=== PATIENT | male | born 1930 | race Caucasian/White ===

== ENCOUNTER → 2017-12-16 12:54 | Outpatient (CLI) | payer MEDICARE | END | disposition home or self-care (01) | LOC: D.US 12:54 | DX: G45.9 Transient cerebral ischemic attack, unspecified (principal) ==

== ENCOUNTER → 2018-01-15 15:29 | Outpatient (CLI) | payer MEDICARE | END | disposition home or self-care (01) | LOC: D.RAD 15:29 | DX: M25.532 Pain in left wrist (principal) ==

== ENCOUNTER 2018-04-04 08:08 | Day surgery (SDC) | payer MEDICARE ==
[2018-04-03 09:32] LABS: BASOPHILS 0.6 % (0-2); EOSINOPHILS 5.2 % (0-7); HEMATOCRIT 49.5 % (42.0-54.0); HEMOGLOBIN 16.7 g/dL (13.5-17.5); IMMATURE GRANULOCYTES 0.2 % (0-5); LYMPHOCYTES 18.6 % (15-50); MCH 32.7 pg (26.0-34.0); MCHC 33.7 g/dL (31.0-37.0); MCV 96.9 fL (80.0-100.0); MEAN PLATELET VOLUME 10.7 fL (7.4-10.4); MONOCYTES 7.9 % (2-11); NEUTROPHILS 67.5 % (40-80); PLATELET COUNT 163 10x3/uL (130-400); RBC 5.11 10x6/uL (4.20-6.10); WBC 8.2 10x3/uL (4.8-10.8)
[2018-04-03 09:55] LABS: CALC OSMOLALITY 286 mosm/kg (275-300); CALCIUM 8.9 mg/dL (8.5-10.1); CARBON DIOXIDE 31.1 mmol/L (21.0-32.0); CHLORIDE - SERUM 104 mmol/L (98-107); CREATININE - SERUM 0.8 mg/dL (0.6-1.3); GLUCOSE 97 mg/dL (74-106); POTASSIUM - SERUM 4.1 mmol/L (3.5-5.1); SODIUM 144 mmol/L (136-145); UREA NITROGEN 12 mg/dL (7-18); eGFR NON AFRICAN AMERICAN > 90 mL/min (90-120)
[~2018-04-04] VITALS: Ht 185.4 cm; Wt 95.3 kg
--- NOTE | ~2018-04-04 | OP ---
PATIENT NAME: NATY MAHER MEDICAL RECORD: [id number] :31 LOCATION:PITER ADMISSION DATE: SURGEON: HUMAIRA CONROY DO DATE OF OPERATION: 04/04/2018 PROCEDURE PERFORMED: Left endoscopic carpal tunnel release. PREOPERATIVE DIAGNOSIS: Left carpal tunnel syndrome. POSTOPERATIVE DIAGNOSIS: Left carpal tunnel syndrome. INDICATIONS: Mr. Maher is an 87-year-old male, who presented to my office with continued hand pain and numbness in the first 3 fingers. He said he was tired of dealing with the pain. He even had some thenar atrophy noted. He said it had been going on for years. Once I saw him, he had a positive carpal compression and Tinel's and Phalen's sign at the wrist on the median nerve. Due to this and after suggesting that he have a nerve conduction study done to give us an idea of the likelihood of recovery, but would not change whether he had the pain or not, the reason I would do the carpal tunnel release just for the pain, he was okay with skipping, in fact he emphatically asked that I would not order the nerve conduction study, but that would do the surgery due to the fact that he wanted it done as soon as possible. I informed him of the risks and benefits and the expectations that this may resolve his pain, but the numbness may not go away in those first 3 fingers and the half of the ring finger, the radial half. He was okay with that and understands that he could also have further damage and nerve and tingling. He was okay with that as well and wanted to proceed forward with the procedure. The patient consented for a left endoscopic carpal tunnel. DESCRIPTION OF PROCEDURE: The patient was taken to the operative suite, laid in supine position, given 2 grams Ancef preoperatively. Timeout was performed. Everyone was in agreeance with the correct side, site and the patient. The left upper extremity was then prepped and draped with a tourniquet above the elbow, below the drapes. Once time out was performed and procedure began, approximately a cm long incision was made just proximal to the wrist crease. Then, the left upper extremity was exsanguinated with Esmarch and tourniquet was inflated to 250 mmHg, was up for 10 minutes. Once the tourniquet was inflated, the incision began on the skin with 15 blade just through the skin and then Ragnells were used to dissect bluntly down to the carpal tunnel. Median nerve was exposed and then the forearm fascia was released with a pickup and a scissors proximally and then the dilators and sheath were entered into the carpal tunnel. Once the sheath was entered into the carpal tunnel, the camera was entered. Seeing that the transverse carpal ligament was the only thing in the way of the sheath just above it, noted a nerve was near it. Then, the probe and the rasp were used to clean off the transverse carpal ligament and the knife was entered into the sheath and under direct visualization the transverse carpal ligament was incised. Then, the sheath and the knife were removed as well as a camera and a Ragnell was used to visually see the release of the transverse carpal ligament and a scissors were used to break up any connections that may had not been completely released by the blade. This was done, the tourniquet was let down at 10 minutes and then the wound into the palm was injected with 9 mL of 0.5% Marcaine without epinephrine and any bleeding was coagulated with the bipolar at that time. Blood loss was minimal. COMPLICATIONS: None. OPERATIVE REPORT [id number] NATY MAHER TRANSINT:[id number] Voice Confirmation ID: [id number] DOCUMENT ID: [id number] HUMAIRA CONROY DO at 0525 CC: [id number] DICTATION DATE: 04/04/18 1243 FOOD CONCESSION MANAGER: 04/04/18 1532 [facility] 04/04/18 [place] [id number] [place] [id number]
[~2018-04-04 08:08] MED LIST: BACTROBAN CREAM15 GM TOPICAL; BAYER CHEWABLE81 MG PO; HYDROCODONE-APA1 TAB PO; LEVO-T25 MCG; LEXAPRO20 MG PO; NORVASC5 MG PO; PROSCAR5 MG PO; VYTORIN 10-20 M1 TAB PO
[2018-04-04 09:07] VITALS: BP 135/78; Ht 185.4 cm; Wt 95.3 kg
[2018-04-04] MEDS ORDERED: HYDROCODONE-APA1 TAB PO (12:37)
[2018-04-04] MEDS ORDERED: DURICEF500 MG PO (12:37)
== END 2018-04-04 14:15 | disposition home or self-care (01) ==
LOC: D.OPS 08:08 → D.PAN 08:15 → D.OPS 08:55
PROVIDERS: Anesthesiology
DX: G56.02 Carpal tunnel syndrome, left upper limb (principal); I10 Essential (primary) hypertension; E78.5 Hyperlipidemia, unspecified; Z86.73 Personal history of transient ischemic attack (TIA), and cerebral infarction without residual deficits; Z01.812 Encounter for preprocedural laboratory examination